=== PATIENT | male | born 1950 | race Caucasian/White ===

== ENCOUNTER 2020-07-20 17:09 | Inpatient (IN) | payer MEDICARE ==
[~2020-07-20] VITALS: Ht 193 cm; Wt 134.3 kg
--- NOTE | ~2020-07-20 | H ---
[address] [address] HISTORY AND PHYSICAL Name: BRADLY GARCIA Room: [facility]- ADM IN M.R.#: [id number] Admission: 07/20/20 Attend Phys: Dylan Gillis MD Discharge: Date of : 54 Report #: [id number] THIS REPORT FOR: //name// cc: FAM - No family physician/PCP FAM - No family physician/PCP ~ Please refer to the History and Physical performed in the physician's office. By: [facility]7Medical Records Staff [facility] /[place]
[2020-07-20 17:15] VITALS: BP 132/65
[2020-07-20 17:50] LABS: MCH 28.6 pg (26.0-34.0); NUCLEATED RBCS 0 /100WBC
[2020-07-20 17:51] LABS: HEMATOCRIT 37.7 % (42.0-52.0); HEMOGLOBIN 12.7 gm/dL (14.0-18.0); MCHC 33.5 g/dL (28.0-37.0); MCV 85.2 fL (80.0-100.0); PLATELET COUNT* 478 thou/uL (150-400); RBC 4.43 mil/uL (4.50-6.00); RDW-CV 15.1 % (10.5-14.5); WBC 15.6 thou/uL (4.0-11.0)
[2020-07-20 17:53] LABS: CALCIUM 8.3 mg/dL (8.5-10.1); POTASSIUM 3.9 mmol/L (3.5-5.1)
[2020-07-20 17:57] LABS: APTT 27.3 Seconds (25.0-31.3); INR 1.2; PROTIME 12.7 Seconds (9.20-11.50)
[2020-07-20 18:05] LABS: ALBUMIN 1.9 g/dL (3.4-5.0); TOTAL BILIRUBIN 0.5 mg/dL (<0.1-1.0); TOTAL PROTEIN 7.3 g/dL (6.4-8.2)
[2020-07-20 18:41] LABS: ABSOLUTE LYMPHOCYTES 0.9 thou/uL (0.8-5.3); ABSOLUTE MONOCYTES 1.2 thou/uL (0.0-1.2); ABSOLUTE NEUTROPHILS 13.4 thou/uL (1.6-8.1)
[2020-07-20 18:42] LABS: ANISOCYTOSIS 1+; PLATELET ESTIMATE ADEQUATE
[2020-07-20 18:43] LABS: LARGE PLATELETS RARE
[2020-07-20 20:24] VITALS: BP 123/70
[2020-07-20 20:30] VITALS: BP 117/69
[2020-07-20] MEDS ORDERED: UNICOMPLEX M TA1 TA1 PO (23:06)
[2020-07-20] MEDS ORDERED: MUCINEX1200 MG PO (23:06)
[2020-07-20 23:13] VITALS: BP 114/70
[2020-07-21 04:51] VITALS: BP 132/80
[2020-07-21 05:11] LABS: ABSOLUTE LYMPHOCYTES 0.5 thou/uL (0.8-5.3); ABSOLUTE MONOCYTES 0.5 thou/uL (0.0-1.2); ABSOLUTE NEUTROPHILS 10.7 thou/uL (1.6-8.1); BASOPHILS 0.2 %; HEMATOCRIT 35.9 % (42.0-52.0); HEMOGLOBIN 11.9 gm/dL (14.0-18.0); LYMPHOCYTES 4.7 %; MCH 28.6 pg (26.0-34.0); MCHC 33.1 g/dL (28.0-37.0); MCV 86.2 fL (80.0-100.0); MPV 7.3 fl. (7.2-11.1); NUCLEATED RBCS 0 /100WBC; PLATELET COUNT* 440 thou/uL (150-400); POLYS 91.1 %; RBC 4.17 mil/uL (4.50-6.00); RDW-CV 14.8 % (10.5-14.5); WBC 11.8 thou/uL (4.0-11.0)
[2020-07-21 05:23] LABS: CALCIUM 8.3 mg/dL (8.5-10.1); CREATININE 0.8 mg/dL (0.6-1.3); POTASSIUM 4.4 mmol/L (3.5-5.1)
[2020-07-21 08:00] VITALS: BP 116/765
[2020-07-21 12:41] VITALS: BP 131/83
--- NOTE | 2020-07-21 16:13 | EKG ---
[place] [address] ELECTROCARDIOGRAM REPORT Name: BRADLY GARCIA Room: [address] ADM IN ..#: [id number] Admission: 07/20/20 Attend Phys: Dylan Gillis, Discharge: Date of : 54 Date of Service: 07/20/20 1724 Report #: [id number] THIS REPORT FOR: //name// [facility] ED Test Date: 2020-07-20 Test Time: 17:24:43 Pat Name: BRADLY GARCIA Department: Room: [facility] Gender: M Lube Technician: MARIA LUISA : 1950 Requested By: Max Alvarez Order Number: [id number] MD: Link Yeh Measurements Intervals [place] Rate: 120 P: 90 OR: 139 QRS: 118 QRSD: 104 T: 14 QT: 289 QTc: 409 Interpretive Statements Sinus tachycardia Atrial premature complexes Incomplete right bundle branch block No previous ECG available for comparison Electronically Signed On 07-21-2020 16:13:11 CDT by Link Yeh [email or web address] <ELECTRONICALLY SIGNED> By: Link Yeh MD, [facility] 07/21/20 1613 1724 1724 Link Yeh MD, [facility] /EPI
[2020-07-21 16:35] VITALS: BP 141/92
[2020-07-21 19:45] VITALS: BP 118/67
[2020-07-21 23:55] VITALS: BP 136/84
[2020-07-22 04:00] VITALS: BP 125/84
[2020-07-22 05:02] LABS: ABSOLUTE LYMPHOCYTES 0.7 thou/uL (0.8-5.3); ABSOLUTE MONOCYTES 0.8 thou/uL (0.0-1.2); ABSOLUTE NEUTROPHILS 13.2 thou/uL (1.6-8.1); BASOPHILS 0.1 %; HEMATOCRIT 34.4 % (42.0-52.0); HEMOGLOBIN 11.3 gm/dL (14.0-18.0); LYMPHOCYTES 4.6 %; MCH 28.4 pg (26.0-34.0); MCHC 32.9 g/dL (28.0-37.0); MCV 86.3 fL (80.0-100.0); MONOCYTES 5.5 %; MPV 7.3 fl. (7.2-11.1); NUCLEATED RBCS 0 /100WBC; PLATELET COUNT* 503 thou/uL (150-400); POLYS 89.8 %; RBC 3.99 mil/uL (4.50-6.00); RDW-CV 15.1 % (10.5-14.5); WBC 14.7 thou/uL (4.0-11.0)
[2020-07-22 05:24] LABS: ALBUMIN 1.8 g/dL (3.4-5.0); CALCIUM 8.1 mg/dL (8.5-10.1); CREATININE 0.9 mg/dL (0.6-1.3); POTASSIUM 4.5 mmol/L (3.5-5.1); TOTAL BILIRUBIN 0.3 mg/dL (<0.1-1.0); TOTAL PROTEIN 7.3 g/dL (6.4-8.2)
[2020-07-22 08:00] VITALS: BP 122/82
[2020-07-22 20:00] VITALS: BP 144/81
[2020-07-23] VITALS (10 sets, daily range): BP systolic 114–132; BP diastolic 70–87
[2020-07-23 04:39] LABS: ABSOLUTE LYMPHOCYTES 0.8 thou/uL (0.8-5.3); ABSOLUTE MONOCYTES 0.8 thou/uL (0.0-1.2); ABSOLUTE NEUTROPHILS 9.5 thou/uL (1.6-8.1); BASOPHILS 0.4 %; HEMATOCRIT 33.7 % (42.0-52.0); HEMOGLOBIN 11.2 gm/dL (14.0-18.0); LYMPHOCYTES 7.3 %; MCH 28.3 pg (26.0-34.0); MCHC 33.3 g/dL (28.0-37.0); MONOCYTES 7.4 %; MPV 6.9 fl. (7.2-11.1); NUCLEATED RBCS 0 /100WBC; PLATELET COUNT* 458 thou/uL (150-400); POLYS 84.9 %; RBC 3.96 mil/uL (4.50-6.00); RDW-CV 15.3 % (10.5-14.5); WBC 11.2 thou/uL (4.0-11.0)
[2020-07-23 05:04] LABS: CALCIUM 8.1 mg/dL (8.5-10.1); CREATININE 0.9 mg/dL (0.6-1.3); MAGNESIUM 2.3 mg/dL (1.8-2.4); POTASSIUM 4.1 mmol/L (3.5-5.1); TOTAL BILIRUBIN 0.3 mg/dL (<0.1-1.0); TOTAL PROTEIN 7.1 g/dL (6.4-8.2)
[2020-07-24] VITALS: BP 112/60
[2020-07-24 04:00] VITALS: BP 111/71
[2020-07-24 08:00] VITALS: BP 127/74
[2020-07-24 11:38] VITALS: BP 123/72
[2020-07-24 12:51] LABS: CLARITY TURBID; TOTAL VOLUME 10 ml
[2020-07-24 12:52] LABS: BF RBC 180917 /mm3; TOTAL CELL COUNT 425832 /mm3
[2020-07-24 13:23] LABS: BF LYMPHOCYTES 1 %; BF POLYS 99 %
[2020-07-24 13:25] LABS: SOURCE PLEURAL FLUID
[2020-07-24 16:43] VITALS: BP 122/72
[2020-07-24 20:39] VITALS: BP 126/87
[2020-07-25] VITALS: BP 121/77
[2020-07-25 04:30] VITALS: BP 122/73
[2020-07-25 08:00] VITALS: BP 137/72
[2020-07-25 12:34] VITALS: BP 121/83
[2020-07-25 13:20] LABS: CALCIUM 8.2 mg/dL (8.5-10.1); CREATININE 0.9 mg/dL (0.6-1.3); MAGNESIUM 2.3 mg/dL (1.8-2.4); POTASSIUM 4.5 mmol/L (3.5-5.1)
[2020-07-25 17:02] VITALS: BP 118/78
[2020-07-25 20:25] VITALS: BP 125/79
[2020-07-26] VITALS: BP 134/81
[2020-07-26 04:30] VITALS: BP 106/68
[2020-07-26 04:58] LABS: HEMATOCRIT 35.3 % (42.0-52.0); HEMOGLOBIN 11.9 gm/dL (14.0-18.0); MCH 28.4 pg (26.0-34.0); MCHC 33.6 g/dL (28.0-37.0); MCV 84.6 fL (80.0-100.0); MPV 6.9 fl. (7.2-11.1); NUCLEATED RBCS 0 /100WBC; PLATELET COUNT* 450 thou/uL (150-400); RBC 4.17 mil/uL (4.50-6.00); RDW-CV 15.7 % (10.5-14.5); WBC 9.2 thou/uL (4.0-11.0)
[2020-07-26 05:25] LABS: ALBUMIN 1.8 g/dL (3.4-5.0); CALCIUM 7.9 mg/dL (8.5-10.1); CREATININE 0.9 mg/dL (0.6-1.3); MAGNESIUM 2.1 mg/dL (1.8-2.4); POTASSIUM 4.2 mmol/L (3.5-5.1); TOTAL BILIRUBIN 0.2 mg/dL (<0.1-1.0); TOTAL PROTEIN 5.6 g/dL (6.4-8.2)
[2020-07-26 05:26] LABS: ABSOLUTE EOSINOPHILS 0.1 thou/uL (0.0-0.7); ABSOLUTE LYMPHOCYTES 1.5 thou/uL (0.8-5.3); ABSOLUTE MONOCYTES 0.6 thou/uL (0.0-1.2); MYELOCYTES 2 %; PLATELET ESTIMATE INCREASED
[2020-07-26 05:27] LABS: ANISOCYTOSIS 1+; HYPOCHROMASIA Occasional; POIKILOCYTOSIS 1+
[2020-07-26 12:22] VITALS: BP 109/71
--- NOTE | 2020-07-26 15:10 | PATH ---
[address] [address] PATHOLOGY RPT PROCEDURE Name: BRADLY GARCIA Room: [facility] IN [facility].#: [id number] Admission: 07/20/20 Date of : 54 Discharge: Report #: [id number] Path Case #: [id number] Note [facility] Accession Number: [id number] TESTS RESULT FLAG UNITS REF RANGE LAB Clinician Provided Cytology Information No. of containers..01 Other (Miscellaneous) Source: PLEURAL FLUID DIAGNOSIS: 02 PLEURAL FLUID NEGATIVE FOR MALIGNANT CELLS. EXTENSIVE/OBSCURING ACUTE INFLAMMATION. THIS INTERPRETATION INCLUDES EVALUATION OF A CELL BLOCK. Signed out by: 02 Wilbert Carver MD, Pathologist NPI- [id number] Performed by: 01 Brittny Reeves, Encephalographer ([facility]) Gross description: 01 5ML, MILKY YELLOW, 1 TP 1 CB /LCS 07/25/2020 1147 Local FLAG LEGEND: L-Low Normal,H-High Normal,LL-Alert Low,HH-Alert High <-Panic Low,>-Panic High,A-Abnormal,AA-Critical Abnormal Performed at: [address] [place] [address] Bart Schumacher MD, [address] [address] Wilbert Carver MD, Specimen Comment: A courtesy copy of this report has been sent to [phone] Specimen Comment: [phone] Specimen Comment: Report sent to / DR DUNCAN Specimen Comment: A duplicate report has been generated due to demographic updates. Performed at: [address], [place], [place] [id number] MD Bart Schumacher MD Phone: [phone]
[2020-07-26 16:21] VITALS: BP 111/70
[2020-07-26 22:20] VITALS: BP 128/83
--- NOTE | 2020-07-26 23:19 | CON ---
[address] [address] CONSULTATION Name: BRADLY GARCIA Room: [address] IN M.R.#: [id number] Admission: 07/20/20 Attend Phys: Dylan Gillis MD Discharge: Date of : 54 Report #: [id number] THIS REPORT FOR: //name// cc: ALEXY Lafleur family physician/PCP AELXY Lafleur family physician/PCP ~ THIS REPORT FOR: //name// CC: Dylan TRACEY physician/PCP DATE OF SERVICE: 07/21/2020 REQUESTING PHYSICIAN: Dr. Dylan Gillis MD INDICATION FOR CONSULTATION: COVID-19 and respiratory failure. HISTORY OF PRESENT ILLNESS: The patient is a 70-year-old gentleman. He has not followed with any physician in many years. The patient does have an extensive history of smoking. He discontinued about 5 years ago. There is also a clinical history consistent with obstructive sleep apnea. The patient has not been previously diagnosed. The patient now reports that he in fact has been having a worsening in his respiratory status for the last several months. He reports primarily that his complaint has been an increase in shortness of breath. He also has had a cough. He does not report much sputum production. He does not have chest pain. The patient has been taking Mucinex at home and very strongly feels that Mucinex really helps. He has not had any contact with COVID-19. The patient does not have a fever. He has had some nasal discharge as well as a blocked nose, which are at baseline. He is not complaining of sore throat. There is only mild swelling of lower extremities. Upon arrival, the patient did test positive for COVID-19 antigen. He is requiring low flow oxygen and therefore also is on remdesivir as well as dexamethasone. The CT, which is suspicious of empyema, he has had some sleep complaints, which are at baseline. He does not have a current fever; however, reports having had fever recently. The patient answers to the negative for 12 questions for review of systems except as mentioned above. PAST MEDICAL HISTORY: There is no known past medical history. SOCIAL HISTORY: He was a smoker, smoked up to a pack a day, several decades, discontinued 5 years ago. No known history of heavy alcohol use or illegal drug use. CURRENT MEDICATIONS: List [place] [address] CONSULTATION Name: BRADLY GARCIA Room: [address]#: [id number] Admission: 07/20/20 Attend Phys: Dylan Gillis MD Discharge: Date of : 54 Report #: [id number] HOME MEDICATIONS: List in [facility] reviewed. FAMILY HISTORY: No pertinent family history. PHYSICAL EXAMINATION: GENERAL: He is alert, awake and oriented. He did speak at length and had multiple questions, which I did try to answer to the best of my ability. VITAL SIGNS: Has a pulse of 94 and a blood pressure 131/83. He is saturating 94%. He is on 2 liters nasal cannula. His temperature is 37.2, which is his T-max. His body mass index is elevated at 36. HEENT: Head is normocephalic and atraumatic. NECK: Does not show raised JVP, asymmetry, mass or lymph nodes. CHEST: Symmetrical expansion on inspection and palpation. On auscultation, breath sounds are diminished and there are occasional rales at the right lung base. HEART: Regular. There is no murmur. ABDOMEN: Soft and nontender. EXTREMITIES: Lower extremities show trace edema, no calf tenderness. SKIN: Dry and intact. NEUROLOGICAL: He moves all extremities bilaterally, equally, and spontaneously with no focal deficit identified. LABORATORY DATA: The patient's lab work including CBC, chemistries, coagulation studies and COVID-19 antigen, which was positive in [facility] reviewed. ASSESSMENT AND PLAN: 1. COVID-19. Agree with remdesivir as well as dexamethasone as currently prescribed. If his respiratory status remains stable, then I will be inclined to cut back on the dexamethasone dose soon. 2. Empyema/loculated pleural effusion. There are extensive findings on the CT as above. The possibility of a lung abscess is not ruled out either. It appears the patient has been sick for the last few months and therefore in the background, he may be developing empyema already for several months and now may have developed COVID-19 on top. I agree with Zosyn. Recommend adding vancomycin. Recommend checking a nasal swab for methicillin-resistant Staphylococcus aureus before starting vancomycin. Also recommend obtaining a sputum culture. Urine for legionella antigen and pneumococcal antigens are also ordered. I recommend that this be evaluated further by a cardiothoracic surgeon as well as an Infectious Disease physician and therefore, I recommend that the patient be transferred to a facility where these specialists are available. 3. Chronic obstructive pulmonary disease exacerbation. It does appear to me that the patient has previously undiagnosed chronic obstructive pulmonary disease as well, which may be a mild exacerbation at this time. For now, the patient is on dexamethasone as above. I ordered albuterol via inhaler. If he declines, I will have a low threshold of adding nebulized bronchodilators. The patient is in a negative pressure room. [facility] is not likely to have a [place] [address] CONSULTATION Name: BRADLY GARCIA Room: [address] ADM IN M.R.#: [id number] Admission: 07/20/20 Attend Phys: Dylan Gillis MD Discharge: Date of : 54 Report #: [id number] significant impact on the patient's current condition, however, the patient strongly he feels better when he takes Mucinex. Mucinex use will also not be harmful. Therefore, I went ahead and ordered Mucinex. 4. Suspected obstructive sleep apnea. In case he declines, I will have a low threshold of ordering BiPAP while asleep. 5. Fluid and electrolytes. I discontinued IV fluids to avoid development of fluid overload perhaps he appears to be mildly fluid overloaded on my exam at time. We will keep him well hydrated for now. I held off on ordering Lasix for now. 6. Deep vein thrombosis prophylaxis, he is on Lovenox. Thanks for this consultation. <ELECTRONICALLY SIGNED> By: Bulmaro Suazo MD 07/26/20 2319 1532 [id number] Suazo MD /nt
[2020-07-27] VITALS (7 sets, daily range): BP systolic 108–168; BP diastolic 72–84
[2020-07-27 05:02] LABS: ABSOLUTE EOSINOPHILS 0.1 thou/uL (0.0-0.7); ABSOLUTE LYMPHOCYTES 1.4 thou/uL (0.8-5.3); ABSOLUTE MONOCYTES 0.6 thou/uL (0.0-1.2); BASOPHILS 0.2 %; EOSINOPHILS 1.4 %; HEMATOCRIT 34.9 % (42.0-52.0); HEMOGLOBIN 11.7 gm/dL (14.0-18.0); LYMPHOCYTES 17.4 %; MCH 28.2 pg (26.0-34.0); MCHC 33.4 g/dL (28.0-37.0); MCV 84.5 fL (80.0-100.0); MONOCYTES 6.9 %; NUCLEATED RBCS 0 /100WBC; PLATELET COUNT* 441 thou/uL (150-400); POLYS 74.1 %; RBC 4.13 mil/uL (4.50-6.00); RDW-CV 15.5 % (10.5-14.5); WBC 8.1 thou/uL (4.0-11.0)
[2020-07-27 05:26] LABS: ALBUMIN 2.2 g/dL (3.4-5.0); CREATININE 0.9 mg/dL (0.6-1.3); POTASSIUM 3.5 mmol/L (3.5-5.1); TOTAL BILIRUBIN 0.3 mg/dL (<0.1-1.0); TOTAL PROTEIN 6.2 g/dL (6.4-8.2)
[2020-07-28] VITALS: BP 134/85
[2020-07-28 05:17] VITALS: BP 145/70
[2020-07-28 05:28] LABS: CALCIUM 8.4 mg/dL (8.5-10.1); CREATININE 0.8 mg/dL (0.6-1.3); MAGNESIUM 2.1 mg/dL (1.8-2.4); POTASSIUM 3.5 mmol/L (3.5-5.1)
[2020-07-28 08:00] VITALS: BP 117/68
[2020-07-28 12:00] VITALS: BP 124/68
[2020-07-28 21:00] VITALS: BP 116/73
[2020-07-29] VITALS: BP 115/70
[2020-07-29 04:00] VITALS: BP 133/80
[2020-07-29 05:17] LABS: ABSOLUTE EOSINOPHILS 0.3 thou/uL (0.0-0.7); ABSOLUTE LYMPHOCYTES 1.7 thou/uL (0.8-5.3); ABSOLUTE MONOCYTES 0.7 thou/uL (0.0-1.2); ABSOLUTE NEUTROPHILS 5.4 thou/uL (1.6-8.1); BASOPHILS 0.4 %; EOSINOPHILS 3.4 %; HEMATOCRIT 36.4 % (42.0-52.0); LYMPHOCYTES 20.7 %; MCH 28.1 pg (26.0-34.0); MCV 85.2 fL (80.0-100.0); MONOCYTES 8.7 %; MPV 6.7 fl. (7.2-11.1); NUCLEATED RBCS 0 /100WBC; PLATELET COUNT* 395 thou/uL (150-400); POLYS 66.8 %; RBC 4.27 mil/uL (4.50-6.00); RDW-CV 15.9 % (10.5-14.5); WBC 8.1 thou/uL (4.0-11.0)
[2020-07-29 05:47] LABS: ALBUMIN 2.3 g/dL (3.4-5.0); CALCIUM 8.5 mg/dL (8.5-10.1); MAGNESIUM 2.1 mg/dL (1.8-2.4); POTASSIUM 3.8 mmol/L (3.5-5.1); TOTAL BILIRUBIN 0.3 mg/dL (<0.1-1.0); TOTAL PROTEIN 6.3 g/dL (6.4-8.2)
[2020-07-29 08:00] VITALS: BP 126/73
[2020-07-29] MEDS ORDERED: AUGMENTIN 875-1 EACH PO (08:35)
[2020-07-29] MEDS ORDERED: FLORASTOR250 MG PO (08:36)
[2020-07-29 10:07] LABS: BODY FLUID PROTEIN 3.6 g/dL (())
[2020-07-29 11:19] VITALS: BP 126/73
== END 2020-07-29 12:15 | disposition home or self-care (01) | DRG 871 ==
LOC: M.ERS 17:09 → M.2W 18:16 → M.TBA-ER 18:16 → M.2W 21:00
PROVIDERS: Emergency Medicine Emergency Medical Services; Internal Medicine; Internal Medicine Critical Care Medicine; ADMIT Internal Medicine; ATTEND Internal Medicine
PROC: XW033E5 Introduction of Remdesivir Anti-infective into Peripheral Vein, Percutaneous Approach, New Technology Group 5 (ICD-10-PCS; principal; 2020-07-20)
PROC: 0W9930Z Drainage of Right Pleural Cavity with Drainage Device, Percutaneous Approach (ICD-10-PCS; 2020-07-23)
DX: A41.9 Sepsis, unspecified organism (principal); J86.9 Pyothorax without fistula; U07.1 COVID-19; J12.89 Other viral pneumonia; J15.6 Pneumonia due to other Gram-negative bacteria; J96.01 Acute respiratory failure with hypoxia; J91.8 Pleural effusion in other conditions classified elsewhere; J44.1 Chronic obstructive pulmonary disease with (acute) exacerbation; E87.1 Hypo-osmolality and hyponatremia; J44.0 Chronic obstructive pulmonary disease with (acute) lower respiratory infection; G47.33 Obstructive sleep apnea (adult) (pediatric); R65.20 Severe sepsis without septic shock; Z87.891 Personal history of nicotine dependence; Z28.21 Immunization not carried out because of patient refusal; Z79.899 Other long term (current) drug therapy